=== PATIENT | male | born 1955 | race Caucasian/White ===

== ENCOUNTER 2020-03-02 10:06 | Outpatient (REF) | payer OTHER, SELFPAY | END 2020-03-02 10:07 | disposition home or self-care (01) | LOC: HO.LAB 10:06 | PROVIDERS: Visit Provider Internal Medicine | DX: Z20.828 Contact with and (suspected) exposure to other viral communicable diseases (principal) | CPT/HCPCS: U0003 ==

== ENCOUNTER 2022-01-12 08:41 | Outpatient (REF) | payer MEDICARE, OTHER, SELFPAY ==
--- NOTE | ~2022-01-12 | XR_ITS ---
EXAMINATION: XR HAND, RIGHT CLINICAL INFORMATION: Right hand pain. COMPARISON: None TECHNIQUE: PA, lateral, and oblique views of the right hand. FINDINGS: There is mild loss of radial intercarpal joint space with periarticular spurring and 1st carpometacarpal joint space without bony erosive changes. No visible acute fracture, dislocation or subluxation seen. No lytic process. Also visualized is loss of PIP and DIP joint space of all digits. The soft tissues are normal. 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 Mild degenerative changes PIP and DIP joints. No acute fracture or dislocation seen.
--- NOTE | ~2022-01-12 | XR_ITS ---
EXAMINATION: XR KNEE STANDING BILATERAL XR KNEE RIGHT CLINICAL INFORMATION: Knee pain. COMPARISON: None TECHNIQUE: AP standing view both knees Right knee, lateral and sunrise views FINDINGS: AP standing view both knees: The tibiofemoral joint spaces are maintained at each knee. A 0.3 cm ossification projects over the intercondylar notch region. This could represent a small intra-articular ossific body. Right knee: The patella is well-positioned within the trochlear groove. The knee joint spaces are maintained. Probable 0.2 cm subchondral cyst of the mid third of the trochlea. No erosions or periostitis. No joint effusion. XR/XR knee RT 2V IMPRESSION: There is likely a subchondral cyst of the mid third of the femoral trochlea which could be secondary to minimal joint degeneration or old osteochondral injury. A small intra-articular ossific body is suspected.
--- NOTE | ~2022-01-12 | XR_ITS ---
EXAMINATION: XR KNEE STANDING BILATERAL XR KNEE RIGHT CLINICAL INFORMATION: Knee pain. COMPARISON: None TECHNIQUE: AP standing view both knees Right knee, lateral and sunrise views FINDINGS: AP standing view both knees: The tibiofemoral joint spaces are maintained at each knee. A 0.3 cm ossification projects over the intercondylar notch region. This could represent a small intra-articular ossific body. Right knee: The patella is well-positioned within the trochlear groove. The knee joint spaces are maintained. Probable 0.2 cm subchondral cyst of the mid third of the trochlea. No erosions or periostitis. No joint effusion. XR/XR knee standing BI IMPRESSION: There is likely a subchondral cyst of the mid third of the femoral trochlea which could be secondary to minimal joint degeneration or old osteochondral injury. A small intra-articular ossific body is suspected.
== END 2022-01-12 08:42 | disposition home or self-care (01) ==
LOC: HO.HOSX 08:41
PROVIDERS: Visit Provider Orthopaedic Surgery
DX: M23.91 Unspecified internal derangement of right knee (principal); M79.641 Pain in right hand
CPT/HCPCS: 73130; 73560; 73565

== ENCOUNTER → 2022-02-10 08:50 | Outpatient (BNVA) | payer MEDICARE, OTHER, SELFPAY | PROVIDERS: PCP Internal Medicine; Visit Provider Orthopaedic Surgery | DX: M19.031 Primary osteoarthritis, right wrist (principal) | CPT/HCPCS: 99212 ==